=== PATIENT | female | born 1990 | race Caucasian/White ===

== ENCOUNTER 2016-08-20 20:57 | Emergency (ER) | payer MEDICAID ==
[~2016-08-20] VITALS: Ht 167.6 cm; Wt 72.6 kg
[2016-08-20 21:32] LABS: *BILIRUBIN,URIN NEGATIVE (NEGATIVE); *BLOOD, URINE Trace-intact (NEGATIVE); *COLOR,URINE YELLOW (YELLOW); *KETONES,URINE TRACE (NEGATIVE); *PROTEIN,URINE NEGATIVE (NEGATIVE); *URINE HCG, QUAL POSITIVE (NEGATIVE); *UROBILINOGEN,URINE 0.2 E.U./dl (NORMAL); LEUKOCYTE ESTERASE ,URINE NEGATIVE (NEGATIVE); NITRITE, URINE NEGATIVE (NEGATIVE); UGLUCOSE NEGATIVE (NEGATIVE)
[2016-08-20 21:38] LABS: *CLARITY,URINE HAZY (CLEAR)
[2016-08-20 21:39] LABS: BACTERIA,URINE MODERATE /HPF (NONE SEEN); MUCUS,URINE MANY /LPF (0-FEW); SQUAMOUS EPITHELIAL CELL,UR MODERATE /HPF (NONE SEEN); WBC,URINE 0-3 /HPF (0-3)
[2016-08-20] MEDS ORDERED: diphenhydrAMINE 50 MG/1 ML VIAL ONE (21:44)
[2016-08-20] MEDS ORDERED: methylPREDNISolone SOD SUCC 125 MG/2 ML VIAL ONE (21:44)
[2016-08-20] MEDS ORDERED: IV NORMAL SALINE 1000 ML BAG IV ONE (21:45)
[2016-08-20] MEDS ORDERED: methylPREDNISolone SOD SUCC 125 MG/2 ML VIAL IV ONE (21:45)
[2016-08-20] MEDS ORDERED: FAMOTIDINE. 20 MG/2 ML VIAL IV ONE ×2 (21:45)
[2016-08-20] MEDS ORDERED: diphenhydrAMINE 50 MG/1 ML VIAL IV ONE (21:45)
== END 2016-08-20 22:39 | disposition home or self-care (01) ==
LOC: ER 20:57
DX: L27.2 Dermatitis due to ingested food (principal); T78.1XXA Other adverse food reactions, not elsewhere classified, initial encounter; X58.XXXA Exposure to other specified factors, initial encounter
CPT/HCPCS: 84703; A4663; J1200; J2930; J3490; J7030

== ENCOUNTER 2019-07-29 21:54 | Emergency (ER) | payer OTHER, MEDICAID ==
[~2019-07-29] VITALS: Ht 167.6 cm; Wt 61.7 kg
--- NOTE | 2019-07-29 22:30 | NUR ---
PATIENT WALKED INTO ER C/O ALLERGIC REACTION AFTER EATTING PINEAPPLE. PATIENT STATES AFTER EATTING FRUIT 30MINS AFTER PATIENT DEVELOPED GENARALIZED HIVES AND ITCHINESSN THAT STARTED 0200 TODAY. PATIENT CAME IN FOR WORSENING SYMPTOMS.SHERRILL ZELAYA CP.
[2019-07-29] MEDS ORDERED: diphenhydrAMINE 50 MG CAPSULE PO ONE (22:45)
[2019-07-29] MEDS ORDERED: EPINEPHRINE 1 MG/1 ML AMP SQ ONE (22:45)
[2019-07-29] MEDS ORDERED: FAMOTIDINE 20 MG TABLET PO ONE (22:45)
[2019-07-29] MEDS ORDERED: predniSONE 10 MG TABLET PO ONE (22:45)
[2019-07-29] MEDS ORDERED: EPINEPHRINE 1 MG/1 ML AMP ONE (22:50)
[2019-07-29] MEDS ORDERED: predniSONE 50 MG TABLET ONE (22:50)
[2019-07-29] MEDS ORDERED: diphenhydrAMINE 50 MG CAPSULE ONE (22:50)
[2019-07-29] MEDS ORDERED: predniSONE 10 MG TABLET ONE (22:50)
[2019-07-29] MEDS ORDERED: FAMOTIDINE 20 MG TABLET ONE (22:50)
[2019-07-29] MEDS ORDERED: IBUPROFEN 600 MG TABLET PO ONE (23:45)
[2019-07-29] MEDS ORDERED: IBUPROFEN 600 MG TABLET ONE (23:49)
--- NOTE | 2019-07-29 23:51 | NUR ---
PATIENT STATES "I FEEL BETTER NOW."
--- NOTE | 2019-07-29 23:56 | NUR ---
Patient discharged to home in stable conditon WITH FAMILY TAKING PATIENT HOME. Written and verbal after care instructions given. Patient verbalizes understanding of instructions. WALKED OUT OF ER WITH NO DISTRESS NOTED.
[2019-07-30] VITALS: BP 135/82
== END 2019-07-30 00:01 | disposition home or self-care (01) ==
LOC: ER 21:56
DX: T78.1XXA Other adverse food reactions, not elsewhere classified, initial encounter (principal); L50.0 Allergic urticaria; X58.XXXA Exposure to other specified factors, initial encounter
CPT/HCPCS: 99284; J0171; J7512 ×2; Q0163; A4663

== ENCOUNTER 2019-07-30 20:39 | Emergency (ER) | payer OTHER, MEDICAID ==
[~2019-07-30] VITALS: Ht 167.6 cm; Wt 61.7 kg
[2019-07-30] MEDS ORDERED: ALBUTEROL SULFATE 2.5 MG/ 0.5 ML NEBU ONE (21:25)
[2019-07-30] MEDS ORDERED: IPRATROPIUM BROMIDE 0.5 MG/2.5 ML NEBU ONE (21:25)
[2019-07-30] MEDS ORDERED: EPINEPHRINE 1 MG/1 ML AMP ONE (21:28)
[2019-07-30] MEDS ORDERED: IPRATROPIUM BROMIDE 0.5 MG/2.5 ML NEBU NEB ONE (21:30)
[2019-07-30] MEDS ORDERED: ALBUTEROL SULFATE 2.5 MG/3 ML NEBU NEB ONE (21:30)
[2019-07-30] MEDS ORDERED: EPINEPHRINE 1 MG/1 ML AMP SQ ONE (21:30)
[2019-07-30 21:33] VITALS: BP 119/76
--- NOTE | 2019-07-30 23:12 | NUR ---
Patient discharged to home in stable conditon. Written and verbal after care instructions given. Patient verbalizes understanding of instructions.
== END 2019-07-30 23:15 | disposition home or self-care (01) ==
LOC: ER 20:39
DX: T78.00XA Anaphylactic reaction due to unspecified food, initial encounter (principal); L50.0 Allergic urticaria
CPT/HCPCS: 94640; 99291; J0171; A4663; J3590